=== PATIENT | male | born 1940 | race Caucasian/White ===

== ENCOUNTER 2020-09-14 14:08 | Inpatient (IN) ==
[2020-09-14] MEDS ORDERED: Isovue-370 500 ML BOTTLE IVP ONE (15:08)
[2020-09-14 15:21] LABS: Basophils % 0.1 %; Eosinophils % 0.1 %; Hematocrit 40.6 % (37.5-50.1); Hemoglobin 12.2 g/dL (12.9-16.9); Immature Granulocytes % 1.2 % (0-4); Lymphocytes # 0.5 K/mcL (0.6-4.6); Lymphocytes % 3.6 %; Mean Corpuscular Volume 106.6 fL (83.0-100.0); Mean Platelet Volume 9.8 fL (9.4-12.4); Monocytes # 0.9 K/mcL (0.0-1.3); Neutrophils # 11.4 K/mcL (1.6-8.9); Platelet Count 126 K/mcL (140-400); Red Blood Count 3.81 M/mcL (4.19-5.50); Red Cell Distribution Width 18.6 % (11.5-14.5); White Blood Count 12.9 K/mcL (4.3-11.1)
[2020-09-14 15:24] LABS: Bacteria,Urine Few per hpf (None-Few); Bilirubin,Urine Negative (Negative); Blood,Urine Negative (Negative); Clarity,Urine Clear (Clear); Color,Urine Yellow (Yellow); Glucose,Urine (UA) Normal (Normal); Ketones,Urine Negative (Negative); Leukocyte Esterase,Urine Moderate (Negative); Nitrite,Urine Negative (Negative); PH,Urine 5.5 pH Units (5.0-8.0); Protein,Urine Trace mg/dL (Neg-Trace); RBC,Urine 0-3 per hpf (0-3); Specific Gravity,Urine 1.027 (1.010-1.025); Urobilinogen,Urine Normal (Normal); WBC,Urine 15-30 per hpf (0-3)
[2020-09-14 15:32] LABS: Prothrombin Time 12.1 Seconds (9.4-12.1)
[2020-09-14 15:35] LABS: Activated Partial Thrombo Time 23.8 Seconds (26.0-36.0)
[2020-09-14 15:39] LABS: Alanine Aminotransferase 35 Units/L (7-52); Albumin 3.7 g/dL (3.5-5.7); Albumin/Globulin Ratio 1.3 (1.1-2.2); Alkaline Phosphatase 177 Units/L (34-104); Aspartate Amino Transferase 20 Units/L (13-39); BUN/Creatinine Ratio 35 (6-26); Bilirubin,Direct 0.4 mg/dL (0.0-0.2); Bilirubin,Indirect 0.8 mg/dL (0.0-1.0); Bilirubin,Total 1.2 mg/dL (0.3-1.0); Blood Urea Nitrogen 24 mg/dL (8-23); Carbon Dioxide 32 mEq/L (23-29); Chloride 99 mEq/L (98-107); Globulin 2.8 g/dL (2.4-3.5); Glucose 128 mg/dL (70-105); Magnesium 1.9 mg/dL (1.6-2.6); Osmolality,Calculated 294 (280-300); Phosphorous 3.4 mg/dL (2.7-4.5); Potassium 3.9 mEq/L (3.5-5.1); Sodium 139 mEq/L (136-145); Total Protein 6.5 g/dL (6.4-8.9); Troponin I 0.03 ng/mL (< 0.04); eGFR For African Americans > 60 (> 60); eGFR For Non-African Americans > 60 (> 60)
[2020-09-14] MEDS ORDERED: Vancomycin 1,750 MG in 0.9 % Sodium Chloride 250 ML IVPB SCH (16:00)
[2020-09-14] MEDS: Cefepime HCl 2,000 MG in Water for inj. (sterile) 20 ML IVP SCH (16:25)
[2020-09-14 16:40] LABS: C-Reactive Protein 111 mg/L (Less than 10)
[2020-09-14] MEDS ORDERED: Vancomycin 1,750 MG/517.5 ML IV.SOLN IVPB ONE (17:00)
[2020-09-14] MEDS ORDERED: Cefepime HCl 2,000 MG in 0.9 % Sodium Chloride Mini Bag 100 ML IVPB SCH (18:00)
[2020-09-14] MEDS ORDERED: *HR* Heparin 5,000 UNIT/ML VIAL IVP PRN ×2 (18:51)
[2020-09-14] MEDS ORDERED: *HR* Heparin 5,000 UNIT/ML VIAL IVP ONE (18:51)
[2020-09-14 19:15] LABS: Mean Corpuscular Hemoglobin 32.5 pg (28.0-33.3); White Blood Count 10.5 K/mcL (4.3-11.1)
[2020-09-14 19:17] LABS: Hematocrit 34.2 % (37.5-50.1); Hemoglobin 10.6 g/dL (12.9-16.9); Immature Platelets 1.2 % (1.1-6.1); Mean Corpuscular Volume 104.9 fL (83.0-100.0); Mean Platelet Volume 9.4 fL (9.4-12.4); Red Blood Count 3.26 M/mcL (4.19-5.50); Red Cell Distribution Width 18.5 % (11.5-14.5)
[2020-09-14 19:19] LABS: Heparin anti-factor XA UFH < 0.04 IU/mL (0.30-0.70); INR 1.1; Prothrombin Time 12.3 Seconds (9.4-12.1)
[2020-09-14] MEDS ORDERED: Acetaminophen 325 MG TABLET PO PRN (20:27)
[2020-09-14] MEDS ORDERED: Naloxone 0.4 MG/ML INJ IVP PRN (20:27)
[2020-09-14] MEDS ORDERED: Ondansetron 4 MG/2 ML VIAL IVP PRN (20:27)
[2020-09-14] MEDS: Heparin 25,000UNIT/250ML 1/2NS 25,000 UNIT/250 ML IV.SOLN IVC SCH (22:36)
[2020-09-14] MEDS: FluocinoLONE Acet 0.025% CRM 15 GM TUBE TP SCH (22:37)
[2020-09-14] MEDS ORDERED: *HR* OxyCODONE Immed Rel 5 MG TABLET PO PRN (23:39)
[2020-09-15] MEDS: Morphine Sulfate ER (12 HR) 30 MG TABLET.ER PO SCH ×3 (00:18→17:59)
[2020-09-15 05:54] LABS: Basophils % 0.1 %; Eosinophils # 0.1 K/mcL (0.0-0.6); Eosinophils % 1.3 %; Hematocrit 35.4 % (37.5-50.1); Hemoglobin 10.8 g/dL (12.9-16.9); Immature Granulocytes % 1.1 % (0-4); Lymphocytes # 0.5 K/mcL (0.6-4.6); Lymphocytes % 6.1 %; Mean Corpuscular HGB Conc 30.5 g/dL (31.6-35.5); Mean Corpuscular Hemoglobin 32.2 pg (28.0-33.3); Mean Corpuscular Volume 105.7 fL (83.0-100.0); Mean Platelet Volume 9.8 fL (9.4-12.4); Monocytes # 0.7 K/mcL (0.0-1.3); Monocytes % 8.9 %; Neutrophils # 6.6 K/mcL (1.6-8.9); Platelet Count 100 K/mcL (140-400); Red Blood Count 3.35 M/mcL (4.19-5.50); Red Cell Distribution Width 18.3 % (11.5-14.5); Segmented Neutrophils % 82.5 %
[2020-09-15 05:57] LABS: Alanine Aminotransferase 25 Units/L (7-52); Albumin 3.1 g/dL (3.5-5.7); Albumin/Globulin Ratio 1.3 (1.1-2.2); Alkaline Phosphatase 147 Units/L (34-104); Aspartate Amino Transferase 17 Units/L (13-39); BUN/Creatinine Ratio 31 (6-26); Blood Urea Nitrogen 16 mg/dL (8-23); Calcium 7.8 mg/dL (8.6-10.3); Carbon Dioxide 29 mEq/L (23-29); Chloride 103 mEq/L (98-107); Globulin 2.3 g/dL (2.4-3.5); Glucose 104 mg/dL (70-105); Osmolality,Calculated 287 (280-300); Phosphorous 2.3 mg/dL (2.7-4.5); Potassium 3.6 mEq/L (3.5-5.1); Sodium 138 mEq/L (136-145); Total Protein 5.4 g/dL (6.4-8.9); eGFR For African Americans > 60 (> 60); eGFR For Non-African Americans > 60 (> 60)
[2020-09-15 06:44] LABS: Activated Partial Thrombo Time 90.5 Seconds (26.0-36.0); INR 1.1; Prothrombin Time 12.7 Seconds (9.4-12.1)
[2020-09-15] MEDS: FluocinoLONE Acet 0.025% CRM 15 GM TUBE TP SCH ×2 (08:43→21:45)
[2020-09-15] MEDS: Cefepime HCl 2,000 MG in Water for inj. (sterile) 20 ML IVP SCH ×2 (08:49→16:19)
[2020-09-15] MEDS: Vancomycin 1,750 MG/517.5 ML IV.SOLN IVPB SCH (08:55)
[2020-09-15] MEDS ORDERED: Acetaminophen IV 1,000 MG/100 ML BAG IVPB ONE (14:49)
[2020-09-15] MEDS: *HR* OxyCODONE Immed Rel 5 MG TABLET PO PRN ×2 (16:18→22:19)
[2020-09-15] MEDS: Furosemide 40 MG TABLET PO SCH (16:19)
[2020-09-15] MEDS: Heparin 25,000UNIT/250ML 1/2NS 25,000 UNIT/250 ML IV.SOLN IVC SCH ×2 (16:25→16:26)
[2020-09-15] MEDS: polyethylene glycoL 3350 17 GM POWD.PACK PO SCH (17:59)
[2020-09-15] MEDS: dexAMETHasone 4 MG TABLET PO SCH (21:42)
[2020-09-15] MEDS: allopurinoL 300 MG TABLET PO SCH (21:43)
[2020-09-15] MEDS: Mirabegron [Myrbetriq] 25 MG Tab.Er.24h PO SCH (21:43)
[2020-09-16] MEDS: Cefepime HCl 2,000 MG in Water for inj. (sterile) 20 ML IVP SCH ×2 (03:19→16:53)
[2020-09-16] MEDS: Vancomycin 1,750 MG/517.5 ML IV.SOLN IVPB SCH (04:10)
[2020-09-16] MEDS: Vancomycin 1,250 MG/262.5 ML IV.SOLN IVPB SCH ×2 (05:56→17:18)
[2020-09-16] MEDS: *HR* OxyCODONE Immed Rel 5 MG TABLET PO PRN ×2 (07:30→20:17)
[2020-09-16] MEDS: Heparin 25,000UNIT/250ML 1/2NS 25,000 UNIT/250 ML IV.SOLN IVC SCH ×2 (07:30→10:24)
[2020-09-16] MEDS: Morphine Sulfate ER (12 HR) 30 MG TABLET.ER PO SCH ×2 (07:30→18:21)
[2020-09-16] MEDS: dexAMETHasone 4 MG TABLET PO SCH ×2 (07:31→21:31)
[2020-09-16] MEDS: amLODIPine 5 MG TABLET PO SCH (07:31)
[2020-09-16] MEDS: Ascorbic Acid 500 MG TABLET PO SCH (07:31)
[2020-09-16] MEDS: Finasteride 5 MG TABLET PO SCH (07:31)
[2020-09-16] MEDS: Furosemide 40 MG TABLET PO SCH ×2 (07:32→16:52)
[2020-09-16] MEDS: FluocinoLONE Acet 0.025% CRM 15 GM TUBE TP SCH ×2 (07:33→21:31)
[2020-09-16] MEDS: Magnesium Oxide 400 MG TABLET PO SCH (10:30)
[2020-09-16] MEDS: polyethylene glycoL 3350 17 GM POWD.PACK PO SCH (16:52)
[2020-09-16] MEDS ORDERED: Vancomycin 1,250 MG/262.5 ML IV.SOLN IVPB SCH (18:00)
[2020-09-16] MEDS: Mirabegron [Myrbetriq] 25 MG Tab.Er.24h PO SCH (21:31)
[2020-09-16] MEDS: allopurinoL 300 MG TABLET PO SCH (21:31)
[2020-09-17] MEDS: *HR* OxyCODONE Immed Rel 5 MG TABLET PO PRN ×2 (02:00→21:30)
[2020-09-17] MEDS: Heparin 25,000UNIT/250ML 1/2NS 25,000 UNIT/250 ML IV.SOLN IVC SCH (04:03)
[2020-09-17] MEDS: Cefepime HCl 2,000 MG in Water for inj. (sterile) 20 ML IVP SCH ×2 (04:06→16:48)
[2020-09-17 04:54] LABS: Basophils % 0.1 %; Eosinophils # 0.1 K/mcL (0.0-0.6); Hematocrit 35.9 % (37.5-50.1); Immature Granulocytes % 1.8 % (0-4); Lymphocytes # 0.4 K/mcL (0.6-4.6); Lymphocytes % 5.2 %; Mean Corpuscular HGB Conc 30.6 g/dL (31.6-35.5); Mean Corpuscular Hemoglobin 32.7 pg (28.0-33.3); Mean Corpuscular Volume 106.8 fL (83.0-100.0); Monocytes # 0.5 K/mcL (0.0-1.3); Monocytes % 6.6 %; Neutrophils # 5.8 K/mcL (1.6-8.9); Nucleated Red Blood Cells 0.3 /100 WBC (0); Platelet Count 125 K/mcL (140-400); Red Blood Count 3.36 M/mcL (4.19-5.50); Red Cell Distribution Width 17.6 % (11.5-14.5); Segmented Neutrophils % 85.3 %; White Blood Count 6.8 K/mcL (4.3-11.1)
[2020-09-17 05:09] LABS: BUN/Creatinine Ratio 29 (6-26); Blood Urea Nitrogen 19 mg/dL (8-23); Calcium 8.3 mg/dL (8.6-10.3); Carbon Dioxide 25 mEq/L (23-29); Chloride 106 mEq/L (98-107); Glucose 162 mg/dL (70-105); Magnesium 2.2 mg/dL (1.6-2.6); Osmolality,Calculated 294 (280-300); Phosphorous 1.8 mg/dL (2.7-4.5); Potassium 4.4 mEq/L (3.5-5.1); Sodium 139 mEq/L (136-145); eGFR For African Americans > 60 (> 60); eGFR For Non-African Americans > 60 (> 60)
[2020-09-17] MEDS: Morphine Sulfate ER (12 HR) 30 MG TABLET.ER PO SCH ×2 (06:24→18:09)
[2020-09-17] MEDS: Vancomycin 1,250 MG/262.5 ML IV.SOLN IVPB SCH (06:24)
[2020-09-17] MEDS: Finasteride 5 MG TABLET PO SCH (07:46)
[2020-09-17] MEDS: Furosemide 40 MG TABLET PO SCH ×2 (07:46→16:48)
[2020-09-17] MEDS: Ascorbic Acid 500 MG TABLET PO SCH (07:46)
[2020-09-17] MEDS: dexAMETHasone 4 MG TABLET PO SCH ×2 (07:46→21:15)
[2020-09-17] MEDS: amLODIPine 5 MG TABLET PO SCH (07:47)
[2020-09-17] MEDS: FluocinoLONE Acet 0.025% CRM 15 GM TUBE TP SCH ×2 (07:47→21:16)
[2020-09-17] MEDS: Apixaban 5 MG TABLET PO SCH ×2 (10:52→21:14)
[2020-09-17] MEDS: Magnesium Oxide 400 MG TABLET PO SCH (10:52)
[2020-09-17] MEDS: polyethylene glycoL 3350 17 GM POWD.PACK PO SCH (16:48)
[2020-09-17] MEDS: Vancomycin 1,500 MG/265 ML IV.SOLN IVPB SCH (18:09)
[2020-09-17] MEDS: allopurinoL 300 MG TABLET PO SCH (21:15)
[2020-09-17] MEDS: Mirabegron [Myrbetriq] 25 MG Tab.Er.24h PO SCH (21:30)
[2020-09-18] MEDS: Cefepime HCl 2,000 MG in Water for inj. (sterile) 20 ML IVP SCH ×2 (05:15→15:19)
[2020-09-18] MEDS: Vancomycin 1,500 MG/265 ML IV.SOLN IVPB SCH (05:19)
[2020-09-18] MEDS: Finasteride 5 MG TABLET PO SCH (08:08)
[2020-09-18] MEDS: Ascorbic Acid 500 MG TABLET PO SCH (08:08)
[2020-09-18] MEDS: Morphine Sulfate ER (12 HR) 30 MG TABLET.ER PO SCH (08:08)
[2020-09-18] MEDS: amLODIPine 5 MG TABLET PO SCH (08:08)
[2020-09-18] MEDS: dexAMETHasone 4 MG TABLET PO SCH (08:08)
[2020-09-18] MEDS: Apixaban 5 MG TABLET PO SCH (08:08)
[2020-09-18] MEDS: Furosemide 40 MG TABLET PO SCH ×2 (08:09→15:20)
[2020-09-18] MEDS: Magnesium Oxide 400 MG TABLET PO SCH (11:17)
[2020-09-18] MEDS: FluocinoLONE Acet 0.025% CRM 15 GM TUBE TP SCH (11:18)
[2020-09-18 14:50] VITALS: BP 136/78
[2020-09-18 14:58] LABS: BUN/Creatinine Ratio 29 (6-26); Blood Urea Nitrogen 23 mg/dL (8-23); Calcium 8.7 mg/dL (8.6-10.3); Carbon Dioxide 28 mEq/L (23-29); Chloride 102 mEq/L (98-107); Glucose 171 mg/dL (70-105); Osmolality,Calculated 292 (280-300); Potassium 4.2 mEq/L (3.5-5.1); Sodium 137 mEq/L (136-145); eGFR For African Americans > 60 (> 60); eGFR For Non-African Americans > 60 (> 60)
[2020-09-18] MEDS: *HR* OxyCODONE Immed Rel 5 MG TABLET PO PRN (15:25)
== END 2020-09-18 17:36 | disposition hospice, home (50) | DRG 593 ==
LOC: 3ANU 14:08 → EMEROOARM 14:08 → SUATTDRO 18:40 → 3ANU 19:59
PROVIDERS: ADMIT Internal Medicine; ATTEND Internal Medicine